=== PATIENT | female | born 1995 | race African-American/Black ===

== ENCOUNTER 2017-12-25 20:03 | Emergency (ER) | payer OTHER ==
--- NOTE | 2017-12-25 20:10 | PDOC ---
Rapid Medical Evaluation Time Seen by Provider: 12/25/17 20:06 Medical Evaluation: 12/25/17 20:07 Pt presents for a needle stick which happened at work earlier today. Pt works for [employer] [facility]. Does not know history of source patient. Pt states tetanus shot is UTD. Pt states she washed the R 2nd finger where she was stuck Exam: NAD, breathing easily, no redness around the site Orders: exposure set Pt to proceed to ED for further evaluation Discharge Disposition - Diagnosis Needle stick injury - Referrals - Patient Instructions - Post Discharge Activity
[2017-12-25 20:11] VITALS: BP 129/65; PULSE 77; TEMP 98.1; BMI 28.8
--- NOTE | 2017-12-25 20:51 | PDOC ---
History of Present Illness - General Chief Complaint: Non EmpBld/Body Flud Exposure Stated Complaint: STUCK BY NEEDLE Time Seen by Provider: 12/25/17 20:06 History Source: Patient Exam Limitations: No Limitations - History of Present Illness Initial Comments: Patient is a 22-year-old female who states that she was stuck by an insulin needle on the second digit right hand prior to arrival while she was at work. Patient denies history of HIV or hepatitis. Patient denies aggravating or relieving factors. 12/25/17 20:49 Past History - Travel Traveled outside of the country in the last 30 days: No Close contact w/someone who was outside of country & ill: No - Past Medical History Allergies/Adverse Reactions: Allergies Allergy/AdvReac Type Severity Reaction Status Date / Time No Known Allergies Allergy Verified 12/25/17 20:07 Home Medications: Ambulatory Orders Ferrous Sulfate [Feosol] 325 mg PO BID 12/25/17 Anemia: Yes COPD: No - Suicide/Smoking/Psychosocial Hx Smoking History: Never smoked Review of Systems - Review of Systems Able to Perform ROS?: Yes *Physical Exam - Vital Signs Last Vital Signs Temp Pulse Resp BP Pulse Ox 98.1 F 77 16 129/65 100 12/25/17 20:08 12/25/17 20:08 12/25/17 20:08 12/25/17 20:08 12/25/17 20:08 - Physical Exam General Appearance: Yes: Nourished, Appropriately Dressed Respiratory/Chest: positive: Lungs Clear Cardiovascular: positive: Regular Rhythm Integumentary: positive: Normal Color, Dry, Warm (No puncture wound visualized.) *DC/Admit/Observation/Transfer Diagnosis at time of Disposition: Needle stick injury - Referrals Referrals: Kj Grijalva MD [Primary Care Provider] - - Patient Instructions
[2017-12-25 21:03] LABS: BASO % 0.6 % (0-2.0); EOS % 0.9 % (0-4.5); HEMATOCRIT 28.8 % (32.4-45.2); HEMOGLOBIN 8.9 GM/dL (10.7-15.3); LYMPH % 24.8 % (8-40); MCHC 30.8 g/dl (32.0-36.0); MEAN CELL VOLUME 56.1 fl (80-96); MEAN PLT VOLUME 9.1 fl (7.5-11.1); MONO % 2.9 % (3.8-10.2); NEUT % 70.8 % (42.8-82.8); PLATELET COUNT 294 K/MM3 (134-434); RBC 5.14 M/mm3 (3.60-5.2); RDW 24.8 % (11.6-15.6); WHITE BLOOD COUNT 5.5 K/mm3 (4.0-10.0)
[2017-12-25 21:04] LABS: MCH 17.3 pg (25.7-33.7)
[2017-12-25 21:20] LABS: ANION GAP 9 MMOL/L (8-16); BLOOD UREA NITROGEN 5 mg/dL (7-18); CALCIUM 9.1 mg/dL (8.5-10.1); CHLORIDE 106 mmol/L (98-107); CO2 26 mmol/L (21-32); CREATININE 0.6 mg/dL (0.55-1.02); GLUCOSE,RANDOM 79 mg/dL (74-106); POTASSIUM 3.9 mmol/L (3.5-5.1); SGOT/AST 13 U/L (15-37); SGPT/ALT 17 U/L (12-78); SODIUM 141 mmol/L (136-145)
[2017-12-25 21:21] LABS: ALK PHOS 84 U/L (45-117); BILIRUBIN,TOTAL 0.3 mg/dL (0.2-1.0); TOT PROT 7.7 g/dl (6.4-8.2)
[2017-12-25 22:43] LABS: ANISOCYTOSIS 3+
[2017-12-27 06:10] LABS: HBsAG SCREEN Negative (Negative)
== END 2017-12-25 21:07 | disposition home or self-care (01) ==
LOC: JERFT 20:03
DX: Z77.21 Contact with and (suspected) exposure to potentially hazardous body fluids (principal); S61.230A Puncture wound without foreign body of right index finger without damage to nail, initial encounter; W46.1XXA Contact with contaminated hypodermic needle, initial encounter; Y93.89 Activity, other specified; Y92.098 Other place in other non-institutional residence as the place of occurrence of the external cause; Y99.0 Civilian activity done for income or pay
CPT/HCPCS: 36415; 80053; 85025; 86317; 86706; 86803; 87340; 87389; 99281-25

== ENCOUNTER 2022-09-21 18:15 | Observation (INO) | payer OTHER ==
[2022-09-21 18:19] VITALS: RESP 18; BMI 27.2
[2022-09-21 21:57] LABS: HEMATOCRIT 19.9 % (32.4-45.2); MEAN CELL VOLUME 49.9 fl (80-96); MEAN PLT VOLUME 9.3 fl (7.5-11.1); PLATELET COUNT 345 10^3/uL (134-434); RDW 22.7 % (11.6-15.6); WHITE BLOOD COUNT 4.2 K/mm3 (4.0-10.0)
[2022-09-21 21:58] LABS: MCH 13.5 pg (25.7-33.7)
[2022-09-21 22:00] LABS: ADD RBC MORPHOLOGY YES; HEMOGLOBIN 5.4 GM/dL (10.7-15.3)
[2022-09-21 22:12] LABS: POTASSIUM 4.6 mmol/L (3.5-5.1)
[2022-09-21 22:15] LABS: BLOOD UREA NITROGEN 5.3 mg/dL (7-18); CALCIUM 9.2 mg/dL (8.5-10.1)
[2022-09-21 22:16] LABS: ALBUMIN 3.4 g/dl (3.4-5.0)
[2022-09-21 22:19] LABS: CREATININE 0.7 mg/dL (0.55-1.3)
[2022-09-21 22:21] LABS: BILIRUBIN,TOTAL 0.6 mg/dL (0.2-1); TOT PROT 6.8 g/dl (6.4-8.2)
[2022-09-21 22:57] LABS: ANISOCYTOSIS 3+; MACROCYTOSIS 1+; OVALOCYTE 2+; TEAR DROP CELLS 1+
[2022-09-21] MEDS ORDERED: DOCUSATE SODIUM 100 MG CAPSULE (FP) PO PRN (23:12)
[2022-09-22] MEDS ORDERED: HYDROCORTISONE 0.5% TOPICAL CREAM 30 GM TUBE TP PRN (06:17)
[2022-09-22] MEDS ORDERED: IRON SUCROSE INJECTION 200 MG in SODIUM CHLORIDE 90 ML IVPB ONE (10:00)
[2022-09-22] MEDS ORDERED: FERROUS SO4 325 MG TABLET (FP) PO SCH (10:00)
[2022-09-22] MEDS ORDERED: FERROUS SO4 325 MG TABLET (FP) ONE (10:28)
[2022-09-22 13:32] LABS: BASO % 0.9 % (0-2.0); EOS % 1.2 % (0-4.5); HEMATOCRIT 27.9 % (32.4-45.2); HEMOGLOBIN 8.3 GM/dL (10.7-15.3); LYMPH % 33.4 % (8-40); MCHC 29.6 g/dl (32.0-36.0); MEAN CELL VOLUME 58.1 fl (80-96); MEAN PLT VOLUME 8.7 fl (7.5-11.1); NEUT % 58.5 % (42.8-82.8); PLATELET COUNT 315 10^3/uL (134-434); RBC 4.81 M/mm3 (3.60-5.2); RDW 34.9 % (11.6-15.6); WHITE BLOOD COUNT 5.7 K/mm3 (4.0-10.0)
[2022-09-22 13:38] LABS: MCH 17.2 pg (25.7-33.7)
[2022-09-22 13:51] LABS: CALCIUM 8.7 mg/dL (8.5-10.1); POTASSIUM 4.5 mmol/L (3.5-5.1)
[2022-09-22 13:53] LABS: ALBUMIN 3.2 g/dl (3.4-5.0); BLOOD UREA NITROGEN 6.1 mg/dL (7-18)
[2022-09-22 13:55] LABS: CREATININE 0.7 mg/dL (0.55-1.3)
[2022-09-22 13:58] LABS: TOT PROT 6.6 g/dl (6.4-8.2)
[2022-09-22 15:33] VITALS: BP 112/62; PULSE 78; TEMP 98.1
== END 2022-09-22 18:39 | disposition home or self-care (01) ==
LOC: JER 18:15 → JERBED 22:33 → J6S 09-22 11:33
PROVIDERS: ADMIT Internal Medicine; ATTEND Internal Medicine
PROC: 30233N1 Transfusion of Nonautologous Red Blood Cells into Peripheral Vein, Percutaneous Approach (ICD-10-PCS; principal; 2022-09-21)
PROC: 3E033GC Introduction of Other Therapeutic Substance into Peripheral Vein, Percutaneous Approach (ICD-10-PCS; 2022-09-21)
DX: D50.9 Iron deficiency anemia, unspecified (principal); D25.9 Leiomyoma of uterus, unspecified
CPT/HCPCS: 0241U-QW; 36415; 36430; 80053; 83540; 83550; 84703; 85025; 86850; 86900; 86901; 86922; 93005; 93010; 96365; 99285-25; G0378; J1756; P9058

== ENCOUNTER 2023-12-12 01:31 | Emergency (ER) | payer OTHER ==
[2023-12-12 01:38] VITALS: TEMP 98.8; BMI 29.7
[2023-12-12 02:52] LABS: HEMATOCRIT 22.6 % (32.4-45.2); MCHC 26.7 g/dl (32.0-36.0); MEAN CELL VOLUME 51.6 fl (80-96); MEAN PLT VOLUME 8.4 fl (7.5-11.1); PLATELET COUNT 384 10^3/uL (134-434); RBC 4.38 M/mm3 (3.60-5.2); RDW 24.5 % (11.6-15.6); WHITE BLOOD COUNT 4.7 K/mm3 (4.0-10.0)
[2023-12-12 02:53] LABS: MCH 13.8 pg (25.7-33.7)
[2023-12-12 02:54] LABS: PH,URINE 6.5 (5.0-8.0); URINE APPEARANCE CLEAR; URINE BILIRUBIN NEGATIVE (NEGATIVE); URINE COLOR YELLOW; URINE GLUCOSE (UA) NEGATIVE (NEGATIVE); URINE KETONE NEGATIVE (NEGATIVE); URINE LEUK ESTERASE NEGATIVE (NEGATIVE); URINE NITRITE NEGATIVE (NEGATIVE); URINE PROTEIN NEGATIVE (NEGATIVE); URINE UROBILINOGEN 0.2 mg/dL (0.2-1.0)
[2023-12-12 02:56] LABS: HCG,QUALITATIVE URINE Negative
[2023-12-12 03:30] LABS: POTASSIUM 4.5 mmol/L (3.5-5.1)
[2023-12-12 03:32] LABS: CALCIUM 8.8 mg/dL (8.5-10.1)
[2023-12-12 03:34] LABS: ALBUMIN 3.4 g/dl (3.4-5.0); BLOOD UREA NITROGEN 8.5 mg/dL (7-18)
[2023-12-12 03:37] LABS: CREATININE 0.7 mg/dL (0.55-1.3)
[2023-12-12 03:39] LABS: BILIRUBIN,TOTAL 0.6 mg/dL (0.2-1); TOT PROT 6.4 g/dl (6.4-8.2)
[2023-12-12 04:10] LABS: ANISOCYTOSIS 2+; MACROCYTOSIS 0; OVALOCYTE 1+
[2023-12-12 06:31] VITALS: BP 112/72; PULSE 88; RESP 18
== END 2023-12-12 09:00 | disposition home or self-care (01) ==
LOC: JER 01:31
DX: R60.0 Localized edema (principal)
CPT/HCPCS: 36415; 71275-TC; 80053; 81003; 84703; 85025; 85379; 86850; 86900; 86901; 93970-TC; 99285-25